=== PATIENT | female | born 1975 | race Caucasian/White ===

== ENCOUNTER 2018-06-14 11:07 | Emergency (ER) | payer OTHER ==
[~2018-06-14] VITALS: Ht 157.5 cm; Wt 54.4 kg
[2018-06-14] MEDS ORDERED: ASCOMP WITH CO1 EACH PO (11:14)
[2018-06-14 12:21] LABS: ABSOLUTE LYMPHOCYTES 0.9 thou/uL (0.8-5.3); ABSOLUTE MONOCYTES 0.5 thou/uL (0.0-1.2); ABSOLUTE NEUTROPHILS 3.9 thou/uL (1.6-8.1); BASOPHILS 0.6 %; EOSINOPHILS 0.3 %; HEMOGLOBIN 13.6 gm/dL (12.0-15.0); LYMPHOCYTES 17.7 %; MCH 31.1 pg (26.0-34.0); MCHC 34.1 g/dL (28.0-37.0); MCV 91.4 fL (80.0-100.0); MONOCYTES 9.3 %; MPV 9.4 fl. (7.2-11.1); NUCLEATED RBCS 0 /100WBC; PLATELET COUNT* 175 thou/uL (150-400); POLYS 72.1 %; RBC 4.38 mil/uL (4.20-5.00); RDW-CV 13.3 % (10.5-14.5); WBC 5.4 thou/uL (4.0-11.0)
[2018-06-14 12:30] LABS: AMP/METHAMP Negative (Negative); BARBITURATES POSITIVE (Negative); BENZODIAZEPINES POSITIVE (Negative); COCAINE Negative (Negative); METHADONE Negative (Negative); OPIATES POSITIVE (Negative); PCP Negative (Negative); THC Negative (Negative)
[2018-06-14 12:34] LABS: CALCIUM 8.5 mg/dL (8.5-10.1); CREATININE 0.9 mg/dL (0.6-1.3)
[2018-06-14 12:46] LABS: ALBUMIN 4.1 g/dL (3.4-5.0); TOTAL BILIRUBIN 0.4 mg/dL (<0.1-1.0); TOTAL PROTEIN 7.2 g/dL (6.4-8.2)
[2018-06-14 13:00] LABS: SALICYLATE < 2.8 mg/dL (2.8-20.0)
[2018-06-14 13:04] LABS: ACETAMINOPHEN < 2 ug/mL (10-30); ALCOHOL < 10 mg/dL (<10)
[2018-06-14 13:14] VITALS: BP 99/64
== END 2018-06-14 13:15 | disposition home or self-care (01) ==
LOC: M.ERS 11:07
PROVIDERS: Family Medicine
DX: F41.0 Panic disorder [episodic paroxysmal anxiety] (principal); G43.909 Migraine, unspecified, not intractable, without status migrainosus; Z88.8 Allergy status to other drugs, medicaments and biological substances; Z91.018 Allergy to other foods

== ENCOUNTER 2018-06-22 11:15 | Inpatient (IN) | payer OTHER ==
[~2018-06-22] VITALS: Ht 160 cm; Wt 56.7 kg
--- NOTE | ~2018-06-22 | CON ---
[address] [address] CONSULTATION Name: KHOA HENRIQUEZ Room: [address] IN .R.#: [id number] Admission: 06/22/18 Attend Phys: Lydia Ashton Discharge: Date of : 77 Report #: [id number] THIS REPORT FOR: //name// CC: JONES physician/PCP Hrai Chu DATE OF SERVICE: 06/23/2018 HISTORY OF PRESENT ILLNESS: This is a 43-year-old female patient, which is very difficult to evaluate. I tried to see the patient twice. The patient is very anxious. She says she is having panic attack. She just had had a consult with psychiatrist. She said she cannot control herself. Therefore, history taking and neurological examination was very difficult. It looks like this patient has been admitted with multiple symptoms. She is being seen by multiple physicians. She has been complaining of chest pain, which appeared to be atypical chest pain looking at the Cardiology note. She complained of nausea, vomiting, watery stool and she would not provide much history because she said she is very shaky. REVIEW OF SYSTEMS: Indicate that it is very difficult. It looks like she has a lot of anxiety, but I cannot evaluate her further in that regard because she was so anxious when I saw her. A 14-point review of systems was limited because of that, but I did talk to the nurses and they were going to give her some antianxiety medication as I understand. PAST MEDICAL HISTORY, FAMILY HISTORY AND SOCIAL HISTORY: Attempted, but the patient is so anxious she could not even talk. We have to try some other time. PHYSICAL EXAMINATION: Similarly was very limited. She is having some unusual movements, which does not look like seizure. She could not cooperate with the examination. It looks like she can move both sides. She has no meningeal sign. Her blood pressure indicate blood pressure of 86/48, pulse 96, temperature 99.3. LABORATORY DATA: Indicate a white count normal. Her calcium is somewhat low at 7.6. Her potassium was low when she came in. She did have an MRI of the brain and I reviewed that and it looks unremarkable. IMPRESSION: I suspect that the patient's predominant problem appeared to be psychiatric. She does have some electrolyte imbalances like slight hypokalemia and hypocalcemia. I do not suspect she has any primary neurological pathology. I will get an EEG done to further exclude that. If that is also excluded, then main management is going to be the management of her psychiatric problem as well as some systemic [place] [address] CONSULTATION Name: KHOA HENRIQUEZ Room: [address] IN [facility]#: [id number] Admission: 06/22/18 Attend Phys: Lydia Ashton Discharge: Date of : 77 Report #: [id number] Thank you very much for this referral. By: [id number] dara Ford
--- NOTE | ~2018-06-22 | EEG ---
[address] [address] EEG STUDY REPORT Name: KHOA HENRIQUEZ Room: [address] IN [facility]#: [id number] Admission: 06/22/18 Attend Phys: Lydia Ashton Discharge: Date of : 77 Report #: [id number] THIS REPORT FOR: //name// CC: JONES physician/PCP Hari Chu DATE OF SERVICE: 06/23/2018 This patient is being evaluated for shakiness. EEG was done by placing the electrodes by standard 10-20 system of electrode placement. Both referential and sequential montages were used for recording. Background activity in this patient's EEG is about 11 Hz and 50 microvolts. It is a symmetrical activity. The patient became drowsy that was associated with some slowing, but most of the EEG was obtained when the patient was awake. Photic stimulation was unremarkable. The patient had one spell during this EEG that showed a lot of artifact, but there was no associated slowing at all in the patient's EEG indicating it for the nonepileptiform spell. IMPRESSION: This patient's EEG demonstrates no active epileptiform activity. Thank you very much for this referral. By: [id number] Dumont MD /nt
[~2018-06-22 11:15] MED LIST: ASCOMP WITH CO1 EACH PO
[2018-06-22 11:18] VITALS: BP 99/67
[2018-06-22 11:40] LABS: ABSOLUTE BASOPHILS 0.1 thou/uL (0.0-0.2); ABSOLUTE LYMPHOCYTES 0.8 thou/uL (0.8-5.3); ABSOLUTE MONOCYTES 0.4 thou/uL (0.0-1.2); ABSOLUTE NEUTROPHILS 3.2 thou/uL (1.6-8.1); BASOPHILS 1.1 %; HEMATOCRIT 41.1 % (37.0-47.0); LYMPHOCYTES 17.9 %; MCH 30.8 pg (26.0-34.0); MCV 90.5 fL (80.0-100.0); MONOCYTES 9.3 %; MPV 9.4 fl. (7.2-11.1); NUCLEATED RBCS 0 /100WBC; PLATELET COUNT* 214 thou/uL (150-400); POLYS 70.7 %; RBC 4.54 mil/uL (4.20-5.00); RDW-CV 13.5 % (10.5-14.5); WBC 4.5 thou/uL (4.0-11.0)
[2018-06-22 11:47] LABS: ANION GAP 9 mmol/L (7-16); BUN 4 mg/dL (7-18); CALCIUM 8.6 mg/dL (8.5-10.1); CHLORIDE 103 mmol/L (98-107); CO2 27 mmol/L (21-32); CREATININE 0.9 mg/dL (0.6-1.3); GLUCOSE 107 mg/dL (70-99); POTASSIUM 3.2 mmol/L (3.5-5.1); SODIUM 139 mmol/L (136-145)
[2018-06-22 11:54] LABS: ALBUMIN 4.2 g/dL (3.4-5.0); ALKALINE PHOSPHATASE 58 U/L (46-116); LIPASE 163 U/L (73-393); MAGNESIUM 2.2 mg/dL (1.8-2.4); SGOT 8 U/L (15-37); SGPT 15 U/L (30-65); TOTAL BILIRUBIN 0.3 mg/dL (<0.1-1.0); TOTAL PROTEIN 7.2 g/dL (6.4-8.2); TROPONIN-I LEVEL <0.06 ng/mL (<0.06)
[2018-06-22] MEDS ORDERED: ATIVAN1 MG PO (12:14)
[2018-06-22] MEDS ORDERED: HYDROXYZINE PAM25 M1 PO (12:15)
[2018-06-22] MEDS ORDERED: SEROQUEL 25 MG25 M1 PO (12:15)
[2018-06-22] MEDS ORDERED: VIIBRYD10 MG PO (12:16)
[2018-06-22 12:39] LABS: URINE BILIRUBIN NEGATIVE (Negative); URINE BLOOD 1+ (Negative); URINE CLARITY CLEAR; URINE COLOR YELLOW; URINE GLUCOSE-RANDOM NEGATIVE (Negative); URINE KETONES NEGATIVE (Negative); URINE LEUKOCYTES-REFLEX NEGATIVE (Negative); URINE NITRITE-REFLEX NEGATIVE (Negative); URINE PROTEIN NEGATIVE (Negative); URINE SPECIFIC GRAVITY <= 1.005 (1.005-1.030); URINE UROBILINOGEN 0.2 E.U./dl (0.2-1.0)
[2018-06-22 12:52] LABS: SQUAMOUS 4-10 Moderate /LPF (0-3); URINE RBC 0-2 Rare /HPF (0-2); URINE WBC-REFLEX None Seen /HPF (0-5)
[2018-06-22 12:53] LABS: BACTERIA-REFLEX 1-9 Few /HPF (None Seen); CASTS None Seen /LPF (None Seen); CRYSTALS None Seen /LPF (None Seen)
[2018-06-22 17:04] VITALS: BP 98/45
[2018-06-22 20:00] VITALS: BP 72/37
[2018-06-23] VITALS (7 sets, daily range): BP systolic 77–99; BP diastolic 45–56
[2018-06-23 04:56] LABS: ABSOLUTE EOSINOPHILS 0.1 thou/uL (0.0-0.7); ABSOLUTE LYMPHOCYTES 1.4 thou/uL (0.8-5.3); ABSOLUTE MONOCYTES 0.4 thou/uL (0.0-1.2); BASOPHILS 0.8 %; EOSINOPHILS 2.4 %; HEMATOCRIT 33.4 % (37.0-47.0); LYMPHOCYTES 35.2 %; MCH 31.5 pg (26.0-34.0); MCHC 34.5 g/dL (28.0-37.0); MCV 91.3 fL (80.0-100.0); MONOCYTES 11.1 %; MPV 9.9 fl. (7.2-11.1); NUCLEATED RBCS 0 /100WBC; PLATELET COUNT* 143 thou/uL (150-400); POLYS 50.5 %; RBC 3.65 mil/uL (4.20-5.00); RDW-CV 13.7 % (10.5-14.5)
[2018-06-23 04:59] LABS: HEMOGLOBIN 11.5 gm/dL (12.0-15.0)
[2018-06-23 05:02] LABS: CALCIUM 7.6 mg/dL (8.5-10.1); CREATININE 0.7 mg/dL (0.6-1.3)
--- NOTE | 2018-06-23 05:30 | NUR ---
ASSUMED CARE OF PT AFTER REPORT AT 1930. PT A&OX4. VSS. PHYSICAL ASSESSMENT COMPLETED AND CHARTED. PT ON RA WITH 99% O2 SAT. PT TRACING SR ON TELE. PT UP ADLIB TO RESTROOM. PT ANXIOUS AT TIMES, CRYING AND TREMBLING AND REQUESTING TO NOT LEAVE HER ALONE. SITTER PROVIDED FOR ATLEAST 20 TO 30 MINS UNTIL PT CALMED DOWN. PT C/O OF HEADACHE. BP 72/37.DR GREGORIO INFORMED- WITH NEW ORDERS MADE. PT CONTINUES TO HAVE LOW BP-PROVIDER INFORMED. POTASSIUM 3.2- ELECTROLYTE PROTOCOL INITIATED.INSTRUCTED ON NPO POST MIDNIGHT FOR CARDIO CONSULT. COMMUNICATES UNDERSTANDING. CALL LIGHT WITHIN REACH. BED IN LOW POSITION.
--- NOTE | 2018-06-23 11:04 | EKG ---
[place] [address] ELECTROCARDIOGRAM REPORT Name: KHOA HENRIQUEZ Room: [address] ADM IN [facility]#: [id number] Admission: 06/22/18 Attend Phys: Lydia Ashton Discharge: Date of : 77 Report #: [id number] THIS REPORT FOR: //name// [facility] ED Test Date: 2018-06-22 Test Time: 11:22:33 Pat Name: KHOA HENRIQUEZ Department: Room: [facility] Gender: F Spray Machine Operator: FERNANDO : 1975 Requested By: Vin England Order Number: [id number] MD: Waldo Tipton Measurements Intervals [address] Rate: 97 P: 86 AK: 124 QRS: 87 QRSD: 72 T: 53 QT: 331 QTc: 421 Interpretive Statements Sinus rhythm Right atrial enlargement Minimal ST depression, inferior leads Baseline wander in lead(s) V6 No previous ECG available for comparison Electronically Signed On 06-23-2018 11:04:10 ALARM SIGNAL OPERATOR by Waldo Tipton [email or web address] <ELECTRONICALLY SIGNED> By: Waldo Tipton MD, [facility] 06/23/18 1104 1122 112 Waldo Tipton MD, [facility] /EPI
--- NOTE | 2018-06-23 11:06 | EKG ---
[place] [address] ELECTROCARDIOGRAM REPORT Name: KHOA HENRIQUEZ Room: [address] ADM IN [facility]#: [id number] Admission: 06/22/18 Attend Phys: Lydia Ashton Discharge: Date of : 77 Report #: [id number] THIS REPORT FOR: //name// [facility] ED Test Date: 2018-06-22 Test Time: 13:34:51 Pat Name: KHOA HENRIQUEZ Department: Room: [facility] Gender: F Barrel Builder: FERNANDO : 1975 Requested By: Vin England Order Number: [id number] MD: Waldo Tipton Measurements Intervals [place] Rate: 106 P: 75 WA: 123 QRS: 82 QRSD: 74 T: 0 QT: 339 QTc: 451 Interpretive Statements Sinus tachycardia Probable left atrial enlargement Minimal ST depression, inferior leads Baseline wander in lead(s) V6 Electronically Signed On 06-23-2018 11:06:14 MANAGER TALENT by Waldo Tipton [email or web address] <ELECTRONICALLY SIGNED> By: Waldo Tipton MD, [facility] 06/23/18 1106 1334 1334 Waldo Tipton MD, FAC /EPI
--- NOTE | 2018-06-23 12:32 | NUR ---
MET WITH PT TO DISCUSS HOME SITUATION/DC PLANNING. PT LIVES [place] AND FAMILY. 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 PT USES NO EQUIPMENT. SHE WAS QUIET AND WITHDRAWN. DENIES ANY NEEDS AT THIS TIME.
[2018-06-23 16:04] LABS: CALCIUM 8.2 mg/dL (8.5-10.1); CREATININE 0.8 mg/dL (0.6-1.3); POTASSIUM 3.9 mmol/L (3.5-5.1)
--- NOTE | 2018-06-23 16:50 | NUR ---
PT REMAINED ALERT AND ORIENTED. TELEPSYCH CONSULT TODAY, NEW PSYCH AND ANXIETY MEDS ORDERED. MRI COMPLETED TODAY. ONE EPISODE OF TREMBLING WITH ANIETY ATTACK, ORAL ATIVAN GIVEN ORDERED. PT BLOOD PRESSURE WAS LOW TODAY, DR. GREGORIO NOTIFIED. FALL RISK PRECAUTIONS IN PLACE. HOURLY ROUNDING COMPLETED. WILL CONTINUE TO MONITOR.
[2018-06-24 00:44] VITALS: BP 103/63
[2018-06-24 04:00] VITALS: BP 92/53
--- NOTE | 2018-06-24 05:32 | NUR ---
ASSUMED CARE OF PT AFTER REPORT AT 1930. PT A&OX4. ANXIOUS AT TIMES. VSS. PHSYICAL ASSESSMENT COMPLETED AND CHARTED. PT ON RA WITH 98% O2 SAT. PT TRACING SR ON TELE. PT UP ADLIB TO RESTROOM. PT C/O OF STOMACH CRAMPS. PT HAD ONE EPISODE OF PANIC ATTACK LAST NIGHT. REQUESTING FOR A SLEPING PILL & DONT WANT TO BE LEFT ALONE IN THE ROOM. BP 88/52. DR CAMACHO INFORMED. THIS NURSE STAYED IN THE ROOM FOR AN HOUR UNTIL PTS CALMED DOWN. CALL LIGHT WITHIN REACH. BED IN LOW POSITION.
[2018-06-24 07:30] VITALS: BP 87/54
[2018-06-24 12:00] VITALS: BP 91/54
[2018-06-24] MEDS ORDERED: ZYPREXA 5 MG TAB5 M1 PO (14:32)
[2018-06-24] MEDS ORDERED: ATIVAN1 MG PO (14:33)
[2018-06-24] MEDS ORDERED: PROZAC 20 MG20 MG PO (14:33)
[2018-06-24 15:55] VITALS: BP 91/54
--- NOTE | 2018-06-24 16:00 | NUR ---
VSS, ASSUMED CARE OF PT THIS AM, ASSESSMENT PERFORMED AND CHARTED, CALL LIGHT IN REACH, CALL LIGHT IN REACH, PT IS A&O4 AND UP AD ANTHONY, DENIES ANY PAIN JUST HAS AXIETY, PT IS SR ON THE MONITOR, ON RA AND HE GOAL IS TO IMPROVE COPING MECHANISMS, AT THIS TIME PT HAS BEEN D/C, IV AND TELE MONITOR HAVE BEEN TAKEN OFF/OUT, PROVITED D/C ISTRUCTION, PT DENIES ANY QUESTIONS AT TIME OF D/C. PT WAS GIVEN SCRIPTS AND D/C PAPERS WITH INSTRUCTIONS, HOURLY ROUNDS COMPLETED AND PT WALKED OUT TO CAR BY STAFF.
--- NOTE | 2018-06-24 16:27 | 2DMMODE ---
[place] [address] 2 D/M-MODE ECHOCARDIOGRAM Name: KHOA HENRIQUEZ Room: [address] IN .R.#: [id number] Admission: 06/22/18 Attend Phys: Hari Chu Discharge: Date of : 77 Date of Service: 06/24/18 1627 Report #: [id number] THIS REPORT FOR: //name// APPROVED REPORT Study performed: 06/23/2018 10:49:16 EXAM: Comprehensive 2D, Doppler, and color-flow Echocardiogram Patient Location: Bedside BSA: 1.47 HR: 86 bpm BP: 77/45 mmHg Other Information Study Quality: Good Indications Chest Pain 2D Dimensions IVSd: 7.52 (7-11mm) LVOT Diam: 17.76 (18-24mm) LVDd: 34.46 mm PWd: 7.79 (7-11mm) Ascending Ao: 23.54 (22-36mm) LVDs: 21.44 (25-40mm) Aortic Root: 23.16 mm Volumes Left Atrial Volume (Systole) LA ESV Index: 9.90 mL/m2 Aortic Valve AoV Peak Braulio.: 1.26 m/s AO Peak Gr.: 6.34 mmHg LVOT Max P.96 mmHg AO Mean Gr.: 3.49 mmHg LVOT Mean P.42 mmHg LVOT Max V: 0.86 m/s AO V2 VTI: 21.34 cm LVOT Mean V: 0.54 m/s THI (VTI): 1.83 cm2 LVOT V1 VTI: 15.79 cm Mitral Valve E/A Ratio: 1.11 MV Decel. Time: 184.40 ms MV E Max Braulio.: 0.76 m/s MV PHT: 53.48 ms MVA (PHT): 4.11 [place] [address] 2 D/M-MODE ECHOCARDIOGRAM Name: KHOA HENRIQUEZ Room: [address] IN [facility]#: [id number] Admission: 06/22/18 Attend Phys: Hari Chu Discharge: Date of : 77 Date of Service: 06/24/18 1627 Report #: [id number] TDI E/Lateral E': 5.07 E/Medial E': 5.85 Medial E' Braulio.: 0.13 m/s Lateral E' Braulio.: 0.15 m/s Pulmonary Valve PV Peak Braulio.: 0.86 m/s PV Peak Gr.: 2.94 mmHg Left Ventricle The left ventricle is normal size. There is normal LV segmental wall motion. There is normal left ventricular wall thickness. Left ventricular systolic function is normal. The left ventricular ejection fraction is within the normal range. LVEF is 60-65%. The left ventricular diastolic function is normal. Right Ventricle The right ventricle is normal size. The right ventricular systolic function is normal. Atria The left atrium size is normal. The right atrium size is normal. Aortic Valve The aortic valve is normal in structure. No aortic regurgitation is present. There is no aortic valvular stenosis. Mitral Valve The mitral valve is normal in structure. Trace mitral regurgitation. No evidence of mitral valve stenosis. Tricuspid Valve The tricuspid valve is normal in structure. There is no tricuspid valve regurgitation noted. Pulmonic Valve The pulmonary valve is normal in structure. There is no pulmonic valvular regurgitation. Great Vessels The aortic root is normal in size. IVC is normal in size and collapses >50% with inspiration. Pericardium There [place] [address] 2 D/M-MODE ECHOCARDIOGRAM Name: KHOA HENRIQUEZ Room: [address] IN [facility]#: [id number] Admission: 06/22/18 Attend Phys: Hari Chu Discharge: Date of : 77 Date of Service: 06/24/18 1627 Report #: [id number] <Conclusion> LVEF is 60-65%. There is normal LV segmental wall motion. Left ventricular systolic function is normal. There is no aortic valvular stenosis. No aortic regurgitation is present. <ELECTRONICALLY SIGNED> By: Murphy Duke MD, [facility] 06/24/18 162 26 26 Murphy Duke MD, [facility] /INF
--- NOTE | 2018-06-25 12:35 | CON ---
[facility] [address] [place] [address] CONSULTATION Name: KHOA HENRIQUEZ Room: [address] IN [facility]#: [id number] Admission: 06/22/18 Attend Phys: Lydia Ashton Discharge: 06/24/18 Date of : 77 Report #: [id number] THIS REPORT FOR: //name// CC: JONES physician/PCP Edmundo Chu DATE OF SERVICE: 06/23/2018 HISTORY OF PRESENT ILLNESS: The patient is a 43-year-old white female who I was asked to see in the hospital today after she complained of chest pain. The patient has no previous history of heart disease. She has had no previous cardiac evaluation. She does have a history of depression. Recently, her nurse practitioner changed her antidepressant medication about a week ago. Since that time, she has been nauseated, has had no appetite. She has been vomiting and noticed watery stools. Yesterday, she was brought to the emergency room complaining of sharp chest pain. It is worse when she bends over. It seemed to radiate into her back. It can last for several minutes. It was not related to any trauma, meals, exertion. No associated shortness of breath or diaphoresis. She does have occasional flutter in her chest. No syncope. PAST MEDICAL HISTORY: Significant for appendectomy. She is . She is currently on menstrual period. She has a history of depression. ALLERGIES: She has intolerance to REGLAN AND COMPAZINE. MEDICATIONS: On admission included Ativan, hydroxyzine, Seroquel, Viibryd. FAMILY HISTORY: Negative for heart disease. SOCIAL HISTORY: She is . She and her live in [facility]. She is not working at this time. She has been dental assist in the past. No smoking or alcohol abuse. REVIEW OF SYSTEMS: She has had no history of stroke, asthma, peptic ulcer disease, liver disease, kidney disease, cancer, chronic skin condition. PHYSICAL EXAMINATION: GENERAL: Revealed young white female lying in bed. She appeared in no acute distress. VITAL SIGNS: She had a blood pressure of 100/60, pulse 90. She is afebrile. HEENT: She was anicteric, conjunctiva pink. Mucous membranes moist. NECK: Veins do not appear distended. CHEST: Clear to auscultation. NECK: Supple. CARDIOVASCULAR: Regular [place] [address] CONSULTATION Name: KHOA HENRIQUEZ Room: [address]#: [id number] Admission: 06/22/18 Attend Phys: Lydia Ashton Discharge: 06/24/18 Date of : 77 Report #: [id number] ABDOMEN: Soft, nontender. EXTREMITIES: Had no edema. Posterior tibial pulse 2+ bilaterally. SKIN: Warm, dry. NEUROLOGIC: Nonfocal. LYMPH: No adenopathy. MUSCULOSKELETAL: No joint effusion. LABORATORY DATA: Her ECG showed a sinus tachycardia, nonspecific ST-segment changes. Her workup in the Emergency Room yesterday, she had a chest x-ray that showed normal heart size and clear lung seo. She had a CT scan of the abdomen done in the Emergency Room yesterday that showed gallbladder sludge, no gallstones, no acute abnormality. She actually had a CT scan of the head without contrast last month that showed no acute abnormality. Her lab work, sodium 141, creatinine 0.7. She had 3 sets of troponins, all less than 0.06. Her drug screen positive for barbiturates, benzodiazepines, opiates. White blood cell count 4.0, hemoglobin 11.5, hematocrit 33.4. IMPRESSION AND RECOMMENDATIONS: 1. Chest pain. The patient has minimal risk factors for coronary artery disease. Her pain is atypical for angina. Suspect noncardiac. Recommend no further cardiac evaluation. The patient has no restrictions from a cardiac standpoint at this time. 2. Nausea, vomiting and watery stools. Reason unclear. 3. History of depression. <ELECTRONICALLY SIGNED> By: Waldo Tipton MD, [facility] 06/25/18 1235 0902 1006Davilydia Tipton MD, FACC /nt
== END 2018-06-24 16:48 | disposition home or self-care (01) | DRG 880 ==
LOC: M.ERS 11:15 → M.TBA-ER 14:13 → M.2W 14:13
PROVIDERS: Emergency Medicine Emergency Medical Services; ADMIT Internal Medicine
DX: F41.0 Panic disorder [episodic paroxysmal anxiety] (principal); R65.10 Systemic inflammatory response syndrome (SIRS) of non-infectious origin without acute organ dysfunction; I95.9 Hypotension, unspecified; G43.909 Migraine, unspecified, not intractable, without status migrainosus; F32.9 Major depressive disorder, single episode, unspecified; E83.51 Hypocalcemia; E87.6 Hypokalemia; R63.0 Anorexia; Z68.22 Body mass index [BMI] 22.0-22.9, adult; Z87.828 Personal history of other (healed) physical injury and trauma; Z90.49 Acquired absence of other specified parts of digestive tract; Z79.899 Other long term (current) drug therapy; Z88.8 Allergy status to other drugs, medicaments and biological substances

== ENCOUNTER 2020-05-20 17:12 | Emergency (ER) | payer OTHER, MEDICARE ==
[~2020-05-20] VITALS: Ht 162.6 cm; Wt 63.5 kg
[~2020-05-20 17:12] MED LIST changes: +ATIVAN1 MG PO; +HYDROXYZINE PAM25 M1 PO; +PROZAC 20 MG20 MG PO; +SEROQUEL 25 MG25 M1 PO; +VIIBRYD10 MG PO; +ZYPREXA 5 MG TAB5 M1 PO
[2020-05-20] MEDS ORDERED: ATIVAN2 MG PO (17:37)
[2020-05-20] MEDS ORDERED: VYVANSE70 MG PO (17:37)
[2020-05-20] MEDS ORDERED: SEROQUEL 25 MG25 MG PO (17:42)
[2020-05-20 17:48] LABS: URINE BILIRUBIN NEGATIVE (Negative); URINE BLOOD TRACE (Negative); URINE CLARITY CLEAR; URINE COLOR YELLOW; URINE GLUCOSE-RANDOM NEGATIVE (Negative); URINE KETONES NEGATIVE (Negative); URINE LEUKOCYTES-REFLEX NEGATIVE (Negative); URINE NITRITE-REFLEX NEGATIVE (Negative); URINE PROTEIN NEGATIVE (Negative); URINE UROBILINOGEN 0.2 E.U./dl (0.2-1.0)
[2020-05-20 17:51] LABS: ABSOLUTE BASOPHILS 0.1 thou/uL (0.0-0.2); ABSOLUTE EOSINOPHILS 0.1 thou/uL (0.0-0.7); ABSOLUTE LYMPHOCYTES 1.9 thou/uL (0.8-5.3); ABSOLUTE MONOCYTES 0.5 thou/uL (0.0-1.2); ABSOLUTE NEUTROPHILS 3.7 thou/uL (1.6-8.1); BASOPHILS 1.3 %; EOSINOPHILS 2.1 %; HEMATOCRIT 39.5 % (37.0-47.0); HEMOGLOBIN 13.6 gm/dL (12.0-15.0); LYMPHOCYTES 29.6 %; MCH 30.9 pg (26.0-34.0); MCHC 34.3 g/dL (28.0-37.0); MCV 89.9 fL (80.0-100.0); MONOCYTES 7.7 %; MPV 8.5 fl. (7.2-11.1); NUCLEATED RBCS 0 /100WBC; PLATELET COUNT* 257 thou/uL (150-400); POLYS 59.3 %; RBC 4.39 mil/uL (4.20-5.00); WBC 6.3 thou/uL (4.0-11.0)
[2020-05-20 17:57] LABS: AMP/METHAMP Negative (Negative); BARBITURATES POSITIVE (Negative); BENZODIAZEPINES POSITIVE (Negative); COCAINE Negative (Negative); METHADONE Negative (Negative); OPIATES POSITIVE (Negative); PCP Negative (Negative); THC Negative (Negative)
[2020-05-20 17:59] LABS: CALCIUM 8.5 mg/dL (8.5-10.1); CREATININE 0.9 mg/dL (0.6-1.3); POTASSIUM 3.9 mmol/L (3.5-5.1)
[2020-05-20 18:09] LABS: ACETAMINOPHEN < 2 ug/mL (10-30); ALCOHOL < 10 mg/dL (<10); SALICYLATE < 2.8 mg/dL (2.8-20.0)
[2020-05-20 18:11] LABS: ALBUMIN 3.9 g/dL (3.4-5.0); TOTAL BILIRUBIN 0.2 mg/dL (<0.1-1.0)
[2020-05-20 21:00] VITALS: BP 135/88
--- NOTE | 2020-05-21 09:41 | EKG ---
[place] [address] ELECTROCARDIOGRAM REPORT Name: KHOA HENRIQUEZ Room: [facility]#: [id number] Admission: 05/20/20 Attend Phys: Discharge: 05/20/20 Date of : 77 Date of Service: 05/20/20 1748 Report #: [id number] THIS REPORT FOR: //name// [facility] ED Test Date: 2020-05-20 Test Time: 17:48:49 Pat Name: KHOA HENRIQUEZ Department: Room: Gender: F Apartment Rental Clerk: : 1975 Requested By: Vin England Order Number: [id number] MD: Waldo Tipton Measurements Intervals [place] Rate: 91 P: 50 VA: 116 QRS: 87 QRSD: 76 T: 70 QT: 323 QTc: 398 Interpretive Statements Sinus rhythm Borderline short VA interval Compared to ECG 06/22/2018 13:34:51 Sinus tachycardia no longer present ST (T wave) deviation no longer present Electronically Signed On 05-21-2020 9:40:49 GEOTHERMAL INSTALLER by Waldo Tipton [email or web address] <ELECTRONICALLY SIGNED> By: Waldo Tipton MD, FAC 05/21/20 0940 1748 1748 Waldo Tipton MD, [facility] /EPI
== END 2020-05-20 21:19 | disposition home or self-care (01) ==
LOC: M.ERS 17:12
PROVIDERS: Emergency Medicine Emergency Medical Services
DX: F41.9 Anxiety disorder, unspecified (principal); G43.909 Migraine, unspecified, not intractable, without status migrainosus; F31.9 Bipolar disorder, unspecified; Z90.49 Acquired absence of other specified parts of digestive tract; F25.9 Schizoaffective disorder, unspecified; Z79.899 Other long term (current) drug therapy; Z88.8 Allergy status to other drugs, medicaments and biological substances; Z20.828 Contact with and (suspected) exposure to other viral communicable diseases

== ENCOUNTER 2021-01-06 12:08 | Emergency (ER) | payer OTHER, MEDICARE ==
[~2021-01-06] VITALS: Ht 160 cm; Wt 49.9 kg
[~2021-01-06 12:08] MED LIST changes: +ATIVAN2 MG PO; +SEROQUEL 25 MG25 MG PO; +VYVANSE70 MG PO
[2021-01-06 13:25] LABS: ABSOLUTE EOSINOPHILS 0.3 thou/uL (0.0-0.7); ABSOLUTE LYMPHOCYTES 1.3 thou/uL (0.8-5.3); ABSOLUTE MONOCYTES 0.5 thou/uL (0.0-1.2); ABSOLUTE NEUTROPHILS 3.5 thou/uL (1.6-8.1); BASOPHILS 0.3 %; EOSINOPHILS 4.8 %; HEMATOCRIT 43.1 % (37.0-47.0); HEMOGLOBIN 14.2 gm/dL (12.0-15.0); LYMPHOCYTES 22.7 %; MCH 29.2 pg (26.0-34.0); MCHC 33.1 g/dL (28.0-37.0); MCV 88.4 fL (80.0-100.0); MONOCYTES 9.1 %; MPV 8.1 fl. (7.2-11.1); NUCLEATED RBCS 0 /100WBC; PLATELET COUNT* 244 thou/uL (150-400); POLYS 63.1 %; RBC 4.87 mil/uL (4.20-5.00); RDW-CV 14.1 % (10.5-14.5); WBC 5.5 thou/uL (4.0-11.0)
[2021-01-06 13:34] LABS: CREATININE 0.7 mg/dL (0.6-1.3); POTASSIUM 4.6 mmol/L (3.5-5.1)
[2021-01-06 13:39] LABS: ALBUMIN 4.5 g/dL (3.4-5.0); TOTAL BILIRUBIN 0.4 mg/dL (<0.1-1.0); TOTAL PROTEIN 7.9 g/dL (6.4-8.2)
[2021-01-06] MEDS ORDERED: ROZEREM 8 MG TAB8 M1 PO (13:47)
[2021-01-06 13:53] LABS: URINE BILIRUBIN NEGATIVE (Negative); URINE BLOOD TRACE (Negative); URINE COLOR YELLOW; URINE GLUCOSE-RANDOM NEGATIVE (Negative); URINE KETONES NEGATIVE (Negative); URINE NITRITE-REFLEX NEGATIVE (Negative); URINE PROTEIN NEGATIVE (Negative); URINE SPECIFIC GRAVITY 1.015 (1.005-1.030); URINE UROBILINOGEN 0.2 E.U./dl (0.2-1.0)
[2021-01-06 13:56] LABS: URINE CLARITY CLOUDY; URINE LEUKOCYTES-REFLEX 3+ (Negative)
[2021-01-06 13:58] LABS: BACTERIA-REFLEX >30 Many /HPF (None Seen); CASTS None Seen /LPF (None Seen); CRYSTALS None Seen /LPF (None Seen); SQUAMOUS >10 Many /LPF (0-3); URINE RBC 0-2 Rare /HPF (0-2); URINE WBC-REFLEX 6-15 Few /HPF (0-5)
[2021-01-06] MEDS ORDERED: CEPHALEXIN500 MG PO (14:03)
[2021-01-06 14:18] VITALS: BP 121/87
== END 2021-01-06 14:19 | disposition home or self-care (01) ==
LOC: M.ERS 12:08
PROVIDERS: Physician Assistant
DX: G47.00 Insomnia, unspecified (principal); N39.0 Urinary tract infection, site not specified; F32.9 Major depressive disorder, single episode, unspecified; F41.9 Anxiety disorder, unspecified; G43.909 Migraine, unspecified, not intractable, without status migrainosus; Z90.49 Acquired absence of other specified parts of digestive tract; F25.9 Schizoaffective disorder, unspecified; Z79.899 Other long term (current) drug therapy; Z88.8 Allergy status to other drugs, medicaments and biological substances